=== PATIENT | male | born 1985 | race African-American/Black ===

== ENCOUNTER 2017-02-10 10:51 | Emergency (ER) | payer MEDICAID ==
[~2017-02-10] VITALS: Ht 167.6 cm; Wt 77.0 kg
[2017-02-10 11:01] VITALS: BP 132/75
== END 2017-02-10 15:40 | disposition left against medical advice (07) ==
LOC: ER 10:57
DX: J02.9 Acute pharyngitis, unspecified (principal); Z53.21 Procedure and treatment not carried out due to patient leaving prior to being seen by health care provider